=== PATIENT | female | born 1960 | race Caucasian/White ===

== ENCOUNTER → 2017-02-11 | Outpatient (CLI) | payer OTHER ==
[2014-10-27 08:16] VITALS: BP 142/79
[2017-02-11 16:35] LABS: BASOPHILS # (AUTO) 0.1 X10^3/uL (0.0-0.1); BASOPHILS % (AUTO) 0.9 % (0.2-1.0); EOSINOPHILS # (AUTO) 0.3 x10^3/uL (0.0-0.2); EOSINOPHILS % (AUTO) 3.6 % (0.9-2.9); HEMATOCRIT 36.7 % (36.0-47.0); HEMOGLOBIN 12.4 g/dL (12.0-16.0); LYMPHOCYTES % (AUTO) 27.7 % (21.0-51.0); MEAN CORPUSCULAR HEMOGLOBIN 31.1 pg (27.0-34.0); MEAN CORPUSCULAR HGB CONC 33.7 g/dL (33.0-35.0); MEAN CORPUSCULAR VOLUME 92.3 fL (80.0-100.0); MEAN PLATELET VOLUME 7.2 fL (7.4-11.0); MONOCYTES # (AUTO) 0.7 x10^3/uL (0.3-0.8); MONOCYTES % (AUTO) 9.9 % (0.0-13.0); NEUTROPHILS # (AUTO) 4.1 x10^3/uL (2.2-4.8); NEUTROPHILS % (AUTO) 57.9 % (42.0-75.0); PLATELET COUNT 314 X10^3/uL (150.0-450.0); RED BLOOD COUNT 3.98 X10^6/uL (3.5-5.4); RED CELL DISTRIBUTION WIDTH 13.9 % (11.6-16.5); RETICULOCYTE % 4.25 % (0.8-2.2); WHITE BLOOD COUNT 7.1 X10^3/uL (3.6-10.0)
[2017-02-15 13:41] LABS: METHYLMALONIC ACID 0.19 umol/L (0.00-0.40)
== END ==
LOC: LAB 15:20
PROVIDERS: ATTEND Nurse Practitioner Family
DX: K14.0 Glossitis (principal)
CPT/HCPCS: 36415; 82607; 82615; 82746; 83918; 85025; 85045; 86256; 86340

== ENCOUNTER → 2017-07-04 | Outpatient (CLI) | payer OTHER ==
[2014-10-27 08:16] VITALS: BP 142/79
[2017-07-04 10:18] LABS: BASOPHILS # (AUTO) 0.3 X10^3/uL (0.0-0.1); BASOPHILS % (AUTO) 2.8 % (0.2-1.0); EOSINOPHILS # (AUTO) 0.4 x10^3/uL (0.0-0.2); HEMATOCRIT 35.9 % (36.0-47.0); HEMOGLOBIN 12.6 g/dL (12.0-16.0); LYMPHOCYTES # (AUTO) 1.8 X10^3/uL (1.3-2.9); LYMPHOCYTES % (AUTO) 20.7 % (21.0-51.0); MEAN CORPUSCULAR HEMOGLOBIN 32.3 pg (27.0-34.0); MEAN CORPUSCULAR HGB CONC 35.2 g/dL (33.0-35.0); MEAN CORPUSCULAR VOLUME 91.8 fL (80.0-100.0); MEAN PLATELET VOLUME 7.2 fL (7.4-11.0); MONOCYTES # (AUTO) 0.8 x10^3/uL (0.3-0.8); MONOCYTES % (AUTO) 8.6 % (0.0-13.0); NEUTROPHILS # (AUTO) 5.7 x10^3/uL (2.2-4.8); NEUTROPHILS % (AUTO) 63.9 % (42.0-75.0); PLATELET COUNT 334 X10^3/uL (150.0-450.0); RED BLOOD COUNT 3.91 X10^6/uL (3.5-5.4); RED CELL DISTRIBUTION WIDTH 13.4 % (11.6-16.5); WHITE BLOOD COUNT 8.9 X10^3/uL (3.6-10.0)
[2017-07-04 10:26] LABS: HEMOGLOBIN A1C 6.5 % (4.5-6.2)
[2017-07-04 10:33] LABS: ALBUMIN 3.5 g/dL (3.4-5.0); BLOOD UREA NITROGEN 33 mg/dL (7-18); CALCIUM 8.8 mg/dL (8.5-10.1); CARBON DIOXIDE 36.8 mmol/L (21-32); CHLORIDE 97 mmol/L (98-107); CHOL/HDL RATIO 4.2 (0.0-5.0); CHOLESTEROL 195 mg/dL (0-200); COR NA(FOR HYPERGLY) 142 mmol/L (136-145); CREATININE 1.42 mg/dL (0.55-1.02); GLUCOSE 139 mg/dL (65-99); HDL CHOLESTEROL 46 mg/dL (40-60); PHOSPHORUS 1.7 mg/dL (2.6-4.7); SODIUM 141 mmol/L (136-145); THEOPHYLLINE 2.6 ug/mL (10-20); TRIGLYCERIDES 472 mg/dL (0-150); eGFR BLACK RACES 49 (>60); eGFR NON BLACK RACES 41 (>60)
[2017-07-04 10:57] LABS: ERYTHROCYTE SEDIMENTATION RATE 2 MM/HOUR (0-20)
== END ==
LOC: LAB 09:52
PROVIDERS: ATTEND Nurse Practitioner Family
DX: Z51.81 Encounter for therapeutic drug level monitoring (principal); I10 Essential (primary) hypertension; N28.89 Other specified disorders of kidney and ureter; M10.9 Gout, unspecified; E78.2 Mixed hyperlipidemia; R73.09 Other abnormal glucose
CPT/HCPCS: 36415; 80048; 80061; 80069; 80198; 83036; 85025; 85652; 86140

== ENCOUNTER → 2017-07-07 | Outpatient (CLI) | payer OTHER ==
[2014-10-27 08:16] VITALS: BP 142/79
--- NOTE | 2017-07-09 14:25 | MG ---
HISTORY: SCREENING Comparison: Multiple priors dating back to October 07, 2011 FINDINGS: Bilateral CC and MLO projections of the right and left breast were obtained. Heterogeneously dense fibroglandular tissue is seen to be present without significant interval change. No suspicious arch itectural distortion, mass or clustered microcalcifications can be observed to suggest malignancy. No skin thickening or nipple retraction is appreciated. No pathological lymphadenopathy can be onesimo ntified. Benign-appearing calcifications are noted within the right and left breast. IMPRESSION: NO RADIOGRAPHIC EVIDENCE OF MALIGNANCY. ACR CATEGORY 2 - benign findings. FOLLOW-UP EXAM 1 YEAR. Diagnostic CAD was utilized and reviewed. * 0 (ZERO) - ASSESSMENT INCOMPLETE; ADDITIONAL IMAGING IS NEEDED. * 1/ (ONE) - NEGATIVE. * 2/II (TWO) - BENIGN FINDINGS. * 3/III (THREE) - PROBABLY BENIGN FINDING; SHORT INTERVAL FOLLOW-UP SUGGESTED. * 4/IV (FOUR) - SUSPICIOUS ABNORMALITY; BIOPSY SHOULD BE CONSIDERED. * 5/V (FIVE) - HIGHLY SUSPICIOUS OF MALIGNANCY; BIOPSY SHOULD BE PERFORMED. A NEGATIVE X-RAY REPORT SHOULD NOT DELAY BIOPSY IF A DOMINANT OR CLINICALLY SUSPICIOUS MASS IS PRESENT; 4 TO 8 PERCENT OF CANCERS ARE NOT IDENTIFIED BY X-RAY. A NEG ATIVE REPORT MAY REINFORCE THE CLINICAL IMPRESSION. ADENOSIS AND DENSE BREASTS MAY OBSCURE AN UNDER LYING NEOPLASM. Reported By:
== END ==
LOC: RAD 14:43
PROVIDERS: ATTEND Nurse Practitioner Family
DX: Z12.31 Encounter for screening mammogram for malignant neoplasm of breast (principal)
CPT/HCPCS: 77067

== ENCOUNTER → 2017-07-10 | Outpatient (CLI) | payer OTHER ==
[2014-10-27 08:16] VITALS: BP 142/79
== END ==
LOC: LAB 09:43
PROVIDERS: ATTEND Nurse Practitioner Family
DX: E87.5 Hyperkalemia (principal)
CPT/HCPCS: 36415; 84132

== ENCOUNTER → 2017-08-11 | Outpatient (CLI) | payer OTHER ==
[2014-10-27 08:16] VITALS: BP 142/79
== END ==
LOC: LAB 16:21
PROVIDERS: ATTEND Nurse Practitioner Family
DX: E87.6 Hypokalemia (principal)
CPT/HCPCS: 36415; 84132

== ENCOUNTER → 2017-12-19 | Outpatient (CLI) | payer OTHER ==
[2014-10-27 08:16] VITALS: BP 142/79
[2017-12-19 13:53] LABS: BASOPHILS # (AUTO) 0.2 X10^3/uL (0.0-0.1); BASOPHILS % (AUTO) 2.1 % (0.2-1.0); EOSINOPHILS # (AUTO) 0.3 x10^3/uL (0.0-0.2); EOSINOPHILS % (AUTO) 4.5 % (0.9-2.9); HEMOGLOBIN 12.2 g/dL (12.0-16.0); LYMPHOCYTES # (AUTO) 1.6 X10^3/uL (1.3-2.9); LYMPHOCYTES % (AUTO) 22.2 % (21.0-51.0); MEAN CORPUSCULAR HEMOGLOBIN 32.2 pg (27.0-34.0); MEAN CORPUSCULAR HGB CONC 34.7 g/dL (33.0-35.0); MEAN CORPUSCULAR VOLUME 92.8 fL (80.0-100.0); MEAN PLATELET VOLUME 7.5 fL (7.4-11.0); MONOCYTES # (AUTO) 0.5 x10^3/uL (0.3-0.8); MONOCYTES % (AUTO) 6.4 % (0.0-13.0); NEUTROPHILS # (AUTO) 4.7 x10^3/uL (2.2-4.8); NEUTROPHILS % (AUTO) 64.8 % (42.0-75.0); PLATELET COUNT 294 X10^3/uL (150.0-450.0); RED BLOOD COUNT 3.77 X10^6/uL (3.5-5.4); RED CELL DISTRIBUTION WIDTH 13.2 % (11.6-16.5); WHITE BLOOD COUNT 7.3 X10^3/uL (3.6-10.0)
[2017-12-19 14:07] LABS: ALBUMIN 3.4 g/dL (3.4-5.0); BLOOD UREA NITROGEN 19 mg/dL (7-18); CALCIUM 9.2 mg/dL (8.5-10.1); CARBON DIOXIDE 30.4 mmol/L (21-32); CHLORIDE 96 mmol/L (98-107); CHOL/HDL RATIO 5.1 (0.0-5.0); CHOLESTEROL 193 mg/dL (0-200); COR NA(FOR HYPERGLY) 136 mmol/L (136-145); CREATININE 1.26 mg/dL (0.55-1.02); HDL CHOLESTEROL 38 mg/dL (40-60); PHOSPHORUS 2.9 mg/dL (2.6-4.7); SODIUM 135 mmol/L (136-145); TRIGLYCERIDES 534 mg/dL (0-150); eGFR BLACK RACES 56 (>60); eGFR NON BLACK RACES 47 (>60)
[2017-12-19 14:50] LABS: MICROALBUMIN,URINE 87.8 mg/L
[2017-12-19 14:52] LABS: CREATININE,URINE 174.98 mg/dL (29-226)
== END ==
LOC: LAB 13:02
PROVIDERS: ATTEND Internal Medicine
DX: E78.4 Other hyperlipidemia (principal); I12.9 Hypertensive chronic kidney disease with stage 1 through stage 4 chronic kidney disease, or unspecified chronic kidney disease; N18.3 Chronic kidney disease, stage 3 (moderate); E11.22 Type 2 diabetes mellitus with diabetic chronic kidney disease
CPT/HCPCS: 36415; 80061; 80069; 82043; 83036; 85025

== ENCOUNTER → 2018-01-23 | Outpatient (CLI) | payer OTHER ==
[2014-10-27 08:16] VITALS: BP 142/79
[2018-01-23 11:49] LABS: CHOL/HDL RATIO 4.8 (0.0-5.0)
[2018-01-23 12:55] LABS: MICROALBUMIN,URINE 31.6 mg/L
[2018-01-23 13:19] LABS: CREATININE,URINE 119.43 mg/dL (29-226)
== END ==
LOC: LAB 10:51
PROVIDERS: ATTEND Nurse Practitioner Family
DX: R73.09 Other abnormal glucose (principal); R78.4 Finding of other drugs of addictive potential in blood
CPT/HCPCS: 36415; 80061; 82043

== ENCOUNTER → 2018-01-23 | Outpatient (CLI) | payer OTHER ==
[2014-10-27 08:16] VITALS: BP 142/79
--- NOTE | 2018-01-23 11:26 | RAD ---
HISTORY: COPD Study: Two-view chest Comparison: 10/12/2016 Findings: The trachea is midline. The cardiac silhouette is unremarkable. The lungs are clear without focal i nfiltrate or effusion. The bony thorax is unremarkable. IMPRESSION: 1. No acute cardiopulmonary disease. Reported By:
== END ==
LOC: RAD 10:40
PROVIDERS: ATTEND Internal Medicine Pulmonary Disease
DX: J44.9 Chronic obstructive pulmonary disease, unspecified (principal)
CPT/HCPCS: 71046

== ENCOUNTER → 2018-04-02 | Outpatient (CLI) | payer OTHER ==
[2014-10-27 08:16] VITALS: BP 142/79
[2018-04-02 14:21] LABS: BASOPHILS # (AUTO) 0.2 X10^3/uL (0.0-0.1); BASOPHILS % (AUTO) 2.3 % (0.2-1.0); EOSINOPHILS # (AUTO) 0.4 x10^3/uL (0.0-0.2); EOSINOPHILS % (AUTO) 5.3 % (0.9-2.9); HEMATOCRIT 38.9 % (36.0-47.0); HEMOGLOBIN 13.7 g/dL (12.0-16.0); LYMPHOCYTES # (AUTO) 2.3 X10^3/uL (1.3-2.9); LYMPHOCYTES % (AUTO) 34.5 % (21.0-51.0); MEAN CORPUSCULAR HEMOGLOBIN 32.3 pg (27.0-34.0); MEAN CORPUSCULAR HGB CONC 35.3 g/dL (33.0-35.0); MEAN CORPUSCULAR VOLUME 91.3 fL (80.0-100.0); MEAN PLATELET VOLUME 7.7 fL (7.4-11.0); MONOCYTES # (AUTO) 0.6 x10^3/uL (0.3-0.8); MONOCYTES % (AUTO) 8.5 % (0.0-13.0); NEUTROPHILS # (AUTO) 3.3 x10^3/uL (2.2-4.8); NEUTROPHILS % (AUTO) 49.4 % (42.0-75.0); PLATELET COUNT 364 X10^3/uL (150.0-450.0); RED BLOOD COUNT 4.26 X10^6/uL (3.5-5.4); RED CELL DISTRIBUTION WIDTH 12.9 % (11.6-16.5); WHITE BLOOD COUNT 6.8 X10^3/uL (3.6-10.0)
[2018-04-02 14:40] LABS: ALANINE AMINOTRANSFERASE 104 Units/L (12-78); ALBUMIN 4.2 g/dL (3.4-5.0); ALKALINE PHOSPHATASE 61 Units/L (46-116); ASPARTATE AMINO TRANSFERASE 68 Units/L (15-37); BLOOD UREA NITROGEN 23 mg/dL (7-18); CALCIUM 10.5 mg/dL (8.5-10.1); CARBON DIOXIDE 36.4 mmol/L (21-32); CHLORIDE 95 mmol/L (98-107); CHOL/HDL RATIO 5.9 (0.0-5.0); CHOLESTEROL 258 mg/dL (0-200); COR NA(FOR HYPERGLY) 140 mmol/L (136-145); CREATININE 1.49 mg/dL (0.55-1.02); HDL CHOLESTEROL 44 mg/dL (40-60); SODIUM 138 mmol/L (136-145); THEOPHYLLINE 7.7 ug/mL (10-20); TOTAL PROTEIN 8.5 g/dL (6.4-8.2); TRIGLYCERIDES 518 mg/dL (0-150); URIC ACID 8.3 mg/dL (2.6-6.0); eGFR BLACK RACES 46 (>60); eGFR NON BLACK RACES 38 (>60)
[2018-04-02 15:01] LABS: ERYTHROCYTE SEDIMENTATION RATE 18 MM/HOUR (0-20)
== END ==
LOC: LAB 13:51
PROVIDERS: ATTEND Nurse Practitioner Family
DX: I12.9 Hypertensive chronic kidney disease with stage 1 through stage 4 chronic kidney disease, or unspecified chronic kidney disease (principal); N18.3 Chronic kidney disease, stage 3 (moderate); E11.22 Type 2 diabetes mellitus with diabetic chronic kidney disease; M10.9 Gout, unspecified; Z51.81 Encounter for therapeutic drug level monitoring
CPT/HCPCS: 36415; 80053; 80061; 80198; 83036; 84550; 85025; 85652; 86140

== ENCOUNTER 2025-06-22 16:48 | Observation (INO) ==
[2025-06-22] MEDS ORDERED: NovoLIN R (or HumuLIN R) SUBCUT PRN (17:28)
[2025-06-22 18:04] VITALS: BMI 40.2
[2025-06-22 18:09] LABS: MEAN PLATELET VOLUME 6.3 fL (7.4-11.0); RED CELL DISTRIBUTION WIDTH 14.7 % (11.6-16.5)
[2025-06-22 18:18] LABS: COR CA(FOR HYPOALB) 10.9 mg/dL (8.5-10.1); CREATININE 2.97 mg/dL (0.55-1.02); eGFR NON BLACK RACES 17 (>60)
[2025-06-22] MEDS: ROCEPHIN VIAL 1 GRAM 1 G in NS 100 ML IV 100 ML IV SCH (18:29)
[2025-06-22] MEDS: LR 1,000 ML IV 1,000 ML IV SCH (18:29)
[2025-06-22] MEDS ORDERED: DUONEB 0.5 MG/3 MG (3 mL) NEB ONE (19:41)
[2025-06-22] MEDS ORDERED: PULMICORT NEB TX 0.5 MG NEB ONE (19:41)
[2025-06-22] MEDS: SNACK - Diabetic Appropriate PO SCH (20:00)
[2025-06-22] MEDS: DUONEB 0.5 MG/3 MG (3 mL) NEB SCH (20:01)
[2025-06-22] MEDS: PULMICORT NEB TX 0.5 MG NEB SCH (20:02)
--- NOTE | 2025-06-22 21:28 | RAD ---
EXAM: CHEST, PA/LAT ADULT HISTORY: fever, weakness, anemia; COMPARISON: December 25, 2023 TECHNIQUE: PA and lateral projections, 2 images FINDINGS: Cardiac silhouette is normal in size and configuration. Pulmonary vascular sizes are normal. No effusion. No focal airspace disease. No pneumothorax. No acute osseous abnormality IMPRESSION: No imaging findings of acute cardiopulmonary disease. THIS IS AN ELECTRONICALLY VERIFIED FINAL REPORT 06/22/2025 9:25 PM - Electronically signed by Tai Cameron MD
[2025-06-22] MEDS: COLACE CAP 100 MG PO SCH (21:47)
[2025-06-22] MEDS: DESYREL PO SCH (21:47)
[2025-06-22] MEDS: GEODON PO SCH (21:48)
[2025-06-22] MEDS: MILK OF MAGNESIA PO SCH (21:48)
[2025-06-22] MEDS: MULTAQ PO SCH (21:48)
[2025-06-22] MEDS: NEURONTIN CAP 400 MG PO SCH (21:53)
[2025-06-22] MEDS: THEO-24 CAP 200 MG (24-HR) PO SCH (22:53)
[2025-06-23 04:25] LABS: BLOOD/HEMOGLOBIN,URINE 1+ (NEGATIVE); LEUKOCYTE ESTERASE ,URINE 1+ (NEGATIVE); NITRITES,URINE NEGATIVE (NEGATIVE)
[2025-06-23 04:28] LABS: APPEARANCE,URINE CLEAR (CLEAR)
[2025-06-23 04:29] LABS: SQUAMOUS EPITHELIAL CELL,UR RARE /HPF (NEGATIVE)
[2025-06-23 04:53] LABS: MEAN PLATELET VOLUME 6.4 fL (7.4-11.0); RED CELL DISTRIBUTION WIDTH 14.6 % (11.6-16.5)
[2025-06-23 05:07] LABS: COR CA(FOR HYPOALB) 10.9 mg/dL (8.5-10.1); CREATININE 2.62 mg/dL (0.55-1.02); eGFR NON BLACK RACES 20 (>60)
[2025-06-23] MEDS ORDERED: CONSULT PHARMACY - POTASSIUM & MAGNESIUM XX SCH (08:00)
[2025-06-23] MEDS ORDERED: PATIENT'S HOME MEDICATION PO SCH (09:00)
[2025-06-23] MEDS: ACTOS PO SCH (09:15)
[2025-06-23] MEDS: TYLENOL 325 MG TAB PO PRN (09:15)
[2025-06-23] MEDS: CYMBALTA PO SCH (09:15)
[2025-06-23] MEDS: DALIRESP PO SCH (09:16)
[2025-06-23] MEDS: KLOR-CON 10 MEQ TAB PO ONE (09:16)
[2025-06-23] MEDS: COZAAR PO SCH (09:16)
[2025-06-23] MEDS: KERENDIA 20 MG PO SCH (09:18)
--- NOTE | 2025-06-23 12:20 | PCM.PROG ---
Progress Note Progress Note for Day of Date of Exam: 06/23/25 Subjective Subjective: Patient is a 64-year-old female admitted for acute cystitis, anemia, generalized weakness . This morning she is resting in bed. No acute events overnight. She reports her symptoms are improving. Labs/imaging: WBC 8, hemoglobin 7.9, platelets 552, sodium 135, potassium 3.6, creatinine 2.62, glucose 97, UA positive, blood urine culture pending. Patient is currently on IV Rocephin. Home medications have been restarted. Otherwise continue with current treatment plan. Continue closely monitor follow-up labs in the morning. Past Medical Family Social History Allergies: Allergies No Known Drug Allergies Allergy (Verified 01/04/24 13:15) Review of Systems ROS changes noted: see HPI Vital Signs and I&O's Vital Signs: Vital Signs Temperature 98.1 F Temperature 98.3 F Pulse Rate [Right Radial] 70 Pulse Rate [Right Radial] 72 Respiratory Rate 20 Respiratory Rate 19 Respiratory Rate 19 Respiratory Rate 19 Blood Pressure [Left Arm] 117/56 Blood Pressure [Left Arm] 109/54 O2 Sat by Pulse Oximetry 98 O2 Sat by Pulse Oximetry 96 O2 Sat by Pulse Oximetry 97 Intake and Output: Intake & Output 06/20/25 06/21/25 06/22/25 06/23/25 23:59 23:59 23:59 23:59 Intake Total 800 / 800 649 / 649 Balance 800 / 800 649 / 649 Physical Exam Oriented: Normal Respiratory: Normal Cardiovascular: Normal : Normal Auscultation: Bowel Sounds: Normal Palpation: Normal Tenderness: Normal Skin: Normal Musculoskeletal: Normal Psychiatric: Normal Speech Pattern: Clear and Appropriate Laboratory and Diagnostics 06/23/25 04:17 06/23/25 04:17 Labs: Laboratory WBC 8.0 X10^3/uL (3.6-10.0) 06/23/25 04:17 RBC 2.67 X10^6/uL (3.5-5.4) L 06/23/25 04:17 Hgb 7.9 g/dL (12.0-16.0) L 06/23/25 04:17 Hct 23.2 % (36.0-47.0) L 06/23/25 04:17 MCV 87.1 fL (80.0-100.0) 06/23/25 04:17 MCH 29.5 pg (27.0-34.0) 06/23/25 04:17 MCHC 33.9 g/dL (33.0-35.0) 06/23/25 04:17 RDW 14.6 % (11.6-16.5) 06/23/25 04:17 Plt Count 552 X10^3/uL (150.0-450.0) H 06/23/25 04:17 MPV 6.4 fL (7.4-11.0) L 06/23/25 04:17 Neut % (Auto) 63.2 % (42.0-75.0) 06/23/25 04:17 Lymph % (Auto) 22.0 % (21.0-51.0) 06/23/25 04:17 [place] % (Auto) 10.2 % (0.0-13.0) 06/23/25 04:17 Eos % (Auto) 3.4 % (0.9-2.9) H 06/23/25 04:17 Baso % (Auto) 1.2 % (0.2-1.0) H 06/23/25 04:17 Neut # (Auto) 5.1 x10^3/uL (2.2-4.8) H 06/23/25 04:17 Lymph # (Auto) 1.8 X10^3/uL (1.3-2.9) 06/23/25 04:17 [place] # (Auto) 0.8 x10^3/uL (0.3-0.8) 06/23/25 04:17 Eos # (Auto) 0.3 x10^3/uL (0.0-0.2) H 06/23/25 04:17 Baso # (Auto) 0.1 X10^3/uL (0.0-0.1) 06/23/25 04:17 Absolute Nucleated RBC 0.0 /100WBC 06/23/25 04:17 Sodium 135 mmol/L (136-145) L 06/23/25 04:17 Corrected Sodium TNP 06/23/25 04:17 Potassium 3.6 mmol/L (3.5-5.1) 06/23/25 04:17 Chloride 96 mmol/L (98-107) L 06/23/25 04:17 Carbon Dioxide 31.1 mmol/L (21-32) 06/23/25 04:17 BUN 46 mg/dL (7-18) H 06/23/25 04:17 Creatinine 2.62 mg/dL (0.55-1.02) H 06/23/25 04:17 Est GFR (MDRD) Af Amer 24 (>60) L 06/23/25 04:17 Est GFR (MDRD) Non-Af 20 (>60) L 06/23/25 04:17 Glucose 97 mg/dL (65-99) 06/23/25 04:17 POC Glucose (mg/dL) 101 mg/dL (65-99) H 06/23/25 11:45 Calcium 9.8 mg/dL (8.5-10.1) 06/23/25 04:17 Corrected Calcium 10.9 mg/dL (8.5-10.1) H 06/23/25 04:17 Magnesium 2.2 mg/dL (2.0-2.9) 06/23/25 04:17 Ferritin 197 ng/mL (8-252) 06/22/25 17:35 Total Bilirubin 0.40 mg/dL (0.2-1.0) 06/23/25 04:17 AST 19 Units/L (15-37) 06/23/25 04:17 ALT 22 Units/L (12-78) 06/23/25 04:17 Alkaline Phosphatase 134 Units/L (46-116) H 06/23/25 04:17 Total Protein 7.9 g/dL (6.4-8.2) 06/23/25 04:17 Albumin 2.6 g/dL (3.4-5.0) L 06/23/25 04:17 Globulin 5.3 g/dL (2.5-4.5) H 06/23/25 04:17 Albumin/Globulin Ratio 0.5 Ratio (1.1-2.1) L 06/23/25 04:17 Vitamin B12 > 2000 pg/mL (193-986) H 06/22/25 17:35 Folate > 20.0 ng/mL (>8.6) 06/22/25 17:35 Specimen Type Clean catch urine 06/23/25 04:15 Urine Color Pale yellow (YELLOW) 06/23/25 04:15 Urine Appearance Clear (CLEAR) 06/23/25 04:15 Urine pH 5.0 (5.0 - 8.0) 06/23/25 04:15 Ur Specific [place] 1.015 (1.000-1.030) 06/23/25 04:15 Urine Protein 1+ (NEGATIVE) 06/23/25 04:15 Urine Glucose (UA) Negative (NEGATIVE) 06/23/25 04:15 Urine Ketones Negative (NEGATIVE) 06/23/25 04:15 Urine Blood 1+ (NEGATIVE) 06/23/25 04:15 Urine Nitrite Negative (NEGATIVE) 06/23/25 04:15 Urine Bilirubin Negative (NEGATIVE) 06/23/25 04:15 Urine Urobilinogen Normal (NORMAL) 06/23/25 04:15 Ur Leukocyte Esterase 1+ (NEGATIVE) 06/23/25 04:15 Urine RBC 0-2 /HPF (0-3) 06/23/25 04:15 Urine WBC 3-5 /HPF (0-5) 06/23/25 04:15 Ur Squamous Epith Cells Rare /HPF (NEGATIVE) 06/23/25 04:15 Urine Bacteria Negative /HPF (NEGATIVE) 06/23/25 04:15 Ur Culture Indicated? Yes/culture set up 06/23/25 04:15 Plan (1) Acute cystitis: Status: Acute Qualifiers: Hematuria presence: without hematuria Qualified Code(s): N30.00 - Acute cystitis without hematuria Plan: IV antibiotics follow up cultures (2) Anemia: Status: None Qualifiers: Anemia type: unspecified type Qualified Code(s): D64.9 - Anemia, unspecified Plan: hgb stable (3) Generalized weakness: Status: Acute
[2025-06-23] MEDS: NEURONTIN CAP 100 MG PO SCH (15:32)
[2025-06-24 04:59] LABS: MEAN PLATELET VOLUME 6.4 fL (7.4-11.0); RED CELL DISTRIBUTION WIDTH 14.8 % (11.6-16.5)
[2025-06-24 05:11] LABS: COR CA(FOR HYPOALB) 10.8 mg/dL (8.5-10.1); CREATININE 2.03 mg/dL (0.55-1.02); eGFR NON BLACK RACES 26 (>60)
[2025-06-24] MEDS: PROTONIX INJ 40 MG VIAL IVP SCH (11:24)
--- NOTE | 2025-06-24 11:29 | PCM.PROG ---
Progress Note Progress Note for Day of Date of Exam: 06/24/25 Subjective Subjective: Patient is a 64-year-old female admitted for acute cystitis, anemia, generalized weakness . This morning she is resting in bed. No acute events overnight. She reports her symptoms are improving. Her hemoglobin has gradually been trending down. Labs/imaging: WBC 6, hemoglobin 7.2, platelets 507, sodium 139, potassium 4.1, creatinine 2.03, glucose 97, UA positive, blood/urine culture pending. Patient is currently on IV Rocephin. Will order a Hemoccult and anemia panel. Also order IV Protonix 40 mg daily. No signs of any active bleeding at this time. Home medications have been resumed. Otherwise continue with current treatment plan. Continue closely monitor follow-up labs in the morning. Past Medical Family Social History Allergies: Allergies No Known Drug Allergies Allergy (Verified 01/04/24 13:15) Review of Systems ROS changes noted: see HPI Vital Signs and I&O's Vital Signs: Vital Signs Temperature 97.7 F Temperature 98.1 F Pulse Rate [Right Radial] 98 Pulse Rate [Right Radial] 69 Pulse Rate 65 Respiratory Rate 20 Respiratory Rate 19 Blood Pressure [Left Arm] 134/62 Blood Pressure [Left Arm] 109/53 O2 Sat by Pulse Oximetry 97 O2 Sat by Pulse Oximetry 96 O2 Sat by Pulse Oximetry 95 Intake and Output: Intake & Output 06/21/25 06/22/25 06/23/25 06/24/25 23:59 23:59 23:59 23:59 Intake Total 800 / 800 1998 791 / 791 Balance 800 / 800 1998 791 / 791 Physical Exam Oriented: Normal Respiratory: Normal Cardiovascular: Normal : Normal Auscultation: Bowel Sounds: Normal Palpation: Normal Tenderness: Normal Skin: Normal Musculoskeletal: Normal Psychiatric: Normal Speech Pattern: Clear and Appropriate Laboratory and Diagnostics 06/24/25 04:16 06/24/25 04:16 Labs: 06/23/25 04:15 Urine,Clean Catch Urine Culture - Preliminary 06/22/25 17:45 Blood Blood Culture - Preliminary 06/22/25 17:35 Blood Blood Culture - Preliminary Laboratory WBC 6.0 X10^3/uL (3.6-10.0) 06/24/25 04:16 RBC 2.47 X10^6/uL (3.5-5.4) L 06/24/25 04:16 Hgb 7.2 g/dL (12.0-16.0) L 06/24/25 04:16 Hct 21.6 % (36.0-47.0) L 06/24/25 04:16 MCV 87.6 fL (80.0-100.0) 06/24/25 04:16 MCH 29.2 pg (27.0-34.0) 06/24/25 04:16 MCHC 33.3 g/dL (33.0-35.0) 06/24/25 04:16 RDW 14.8 % (11.6-16.5) 06/24/25 04:16 Plt Count 507 X10^3/uL (150.0-450.0) H 06/24/25 04:16 MPV 6.4 fL (7.4-11.0) L 06/24/25 04:16 Neut % (Auto) 63.1 % (42.0-75.0) 06/24/25 04:16 Lymph % (Auto) 23.6 % (21.0-51.0) 06/24/25 04:16 [place] % (Auto) 8.9 % (0.0-13.0) 06/24/25 04:16 Eos % (Auto) 3.3 % (0.9-2.9) H 06/24/25 04:16 Baso % (Auto) 1.1 % (0.2-1.0) H 06/24/25 04:16 Neut # (Auto) 3.8 x10^3/uL (2.2-4.8) 06/24/25 04:16 Lymph # (Auto) 1.4 X10^3/uL (1.3-2.9) 06/24/25 04:16 [place] # (Auto) 0.5 x10^3/uL (0.3-0.8) 06/24/25 04:16 Eos # (Auto) 0.2 x10^3/uL (0.0-0.2) 06/24/25 04:16 Baso # (Auto) 0.1 X10^3/uL (0.0-0.1) 06/24/25 04:16 Absolute Nucleated RBC 0.1 /100WBC 06/24/25 04:16 Sodium 139 mmol/L (136-145) 06/24/25 04:16 Corrected Sodium TNP 06/24/25 04:16 Potassium 4.1 mmol/L (3.5-5.1) 06/24/25 04:16 Chloride 102 mmol/L (98-107) 06/24/25 04:16 Carbon Dioxide 32.9 mmol/L (21-32) H 06/24/25 04:16 BUN 38 mg/dL (7-18) H 06/24/25 04:16 Creatinine 2.03 mg/dL (0.55-1.02) H 06/24/25 04:16 Est GFR (MDRD) Af Amer 32 (>60) L 06/24/25 04:16 Est GFR (MDRD) Non-Af 26 (>60) L 06/24/25 04:16 Glucose 97 mg/dL (65-99) 06/24/25 04:16 POC Glucose (mg/dL) 97 mg/dL (65-99) 06/24/25 10:45 Calcium 9.4 mg/dL (8.5-10.1) 06/24/25 04:16 Corrected Calcium 10.8 mg/dL (8.5-10.1) H 06/24/25 04:16 Magnesium 2.2 mg/dL (2.0-2.9) 06/23/25 04:17 Iron 30 ug/dL (50-175) L 06/24/25 04:16 TIBC 188 ug/dL (250-450) L 06/24/25 04:16 Ferritin 154 ng/mL (8-252) 06/24/25 04:16 Total Bilirubin 0.30 mg/dL (0.2-1.0) 06/24/25 04:16 AST 15 Units/L (15-37) 06/24/25 04:16 ALT 17 Units/L (12-78) 06/24/25 04:16 Alkaline Phosphatase 113 Units/L (46-116) 06/24/25 04:16 Total Protein 6.8 g/dL (6.4-8.2) 06/24/25 04:16 Albumin 2.2 g/dL (3.4-5.0) L 06/24/25 04:16 Globulin 4.6 g/dL (2.5-4.5) H 06/24/25 04:16 Albumin/Globulin Ratio 0.5 Ratio (1.1-2.1) L 06/24/25 04:16 Vitamin B12 > 2000 pg/mL (193-986) H 06/24/25 04:16 Folate > 20.0 ng/mL (>8.6) 06/24/25 04:16 Specimen Type Clean catch urine 06/23/25 04:15 Urine Color Pale yellow (YELLOW) 06/23/25 04:15 Urine Appearance Clear (CLEAR) 06/23/25 04:15 Urine pH 5.0 (5.0 - 8.0) 06/23/25 04:15 Ur Specific [place] 1.015 (1.000-1.030) 06/23/25 04:15 Urine Protein 1+ (NEGATIVE) 06/23/25 04:15 Urine Glucose (UA) Negative (NEGATIVE) 06/23/25 04:15 Urine Ketones Negative (NEGATIVE) 06/23/25 04:15 Urine Blood 1+ (NEGATIVE) 06/23/25 04:15 Urine Nitrite Negative (NEGATIVE) 06/23/25 04:15 Urine Bilirubin Negative (NEGATIVE) 06/23/25 04:15 Urine Urobilinogen Normal (NORMAL) 06/23/25 04:15 Ur Leukocyte Esterase 1+ (NEGATIVE) 06/23/25 04:15 Urine RBC 0-2 /HPF (0-3) 06/23/25 04:15 Urine WBC 3-5 /HPF (0-5) 06/23/25 04:15 Ur Squamous Epith Cells Rare /HPF (NEGATIVE) 06/23/25 04:15 Urine Bacteria Negative /HPF (NEGATIVE) 06/23/25 04:15 Ur Culture Indicated? Yes/culture set up 06/23/25 04:15 Plan (1) Acute cystitis: Status: Acute Qualifiers: Hematuria presence: without hematuria Qualified Code(s): N30.00 - Acute cystitis without hematuria Plan: IV antibiotics follow up cultures (2) Anemia: Status: None Qualifiers: Anemia type: unspecified type Qualified Code(s): D64.9 - Anemia, unspecified Plan: hgb stable (3) Generalized weakness: Status: Acute
[2025-06-25 05:01] LABS: MEAN PLATELET VOLUME 6.1 fL (7.4-11.0); RED CELL DISTRIBUTION WIDTH 14.6 % (11.6-16.5)
[2025-06-25 05:10] LABS: COR CA(FOR HYPOALB) 10.7 mg/dL (8.5-10.1); CREATININE 1.79 mg/dL (0.55-1.02); eGFR NON BLACK RACES 30 (>60)
[2025-06-25] MEDS: NS 250 ML IV 250 ML IV ONE ×2 (15:52)
[2025-06-25 19:50] VITALS: BP 131/60; PULSE 73; RESP 20; TEMP 98; O2SAT 95
== END 2025-06-25 20:20 | disposition home or self-care (01) ==
LOC: MED/SURG
PROVIDERS: ADMIT Obstetrics & Gynecology Obstetrics; ATTEND Obstetrics & Gynecology Obstetrics
DX: R10.84 Generalized abdominal pain; Z16.12 Extended spectrum beta lactamase (ESBL) resistance; R94.4 Abnormal results of kidney function studies; J44.9 Chronic obstructive pulmonary disease, unspecified; R06.89 Other abnormalities of breathing; N39.0 Urinary tract infection, site not specified; Z16.23 Resistance to quinolones and fluoroquinolones; E87.1 Hypo-osmolality and hyponatremia; D64.89 Other specified anemias; E86.0 Dehydration; Z16.29 Resistance to other single specified antibiotic; R53.1 Weakness; R74.8 Abnormal levels of other serum enzymes; E11.65 Type 2 diabetes mellitus with hyperglycemia; B96.29 Other Escherichia coli [E. coli] as the cause of diseases classified elsewhere